=== PATIENT | female | born 1975 | race Hispanic/Latino ===

== ENCOUNTER 2017-11-30 23:04 | Emergency (ER) | payer OTHER ==
[~2017-11-30] VITALS: Ht 165.1 cm; Wt 72.6 kg
[2017-11-30] MEDS ORDERED: METOCLOPRAMIDE HCL 10 MG/2ML VIAL IV STA (23:41)
[2017-11-30] MEDS ORDERED: MORPHINE SULFATE INJ 4 MG/ML INJ IV STA (23:55)
[2017-12-01] MEDS ORDERED: POTASSIUM CHLORIDE 20 MEQ TAB CR PO STA (00:37)
== END 2017-12-01 01:47 | disposition home or self-care (01) ==
LOC: FSED 23:04
DX: R10.13 Epigastric pain (principal); R11.2 Nausea with vomiting, unspecified; R19.7 Diarrhea, unspecified; K52.9 Noninfective gastroenteritis and colitis, unspecified; E87.6 Hypokalemia
CPT/HCPCS: 74021; 80048; 80076; 81003; 81025; 82553; 83518; 84484; 85025; 99284; J2270; J2765